=== PATIENT | female | born 1955 | race Caucasian/White ===

== ENCOUNTER 2017-03-13 15:59 | Emergency (ER) | payer OTHER ==
[~2017-03-13] VITALS: Ht 154.9 cm; Wt 86.0 kg
[~2017-03-13 15:59] MED LIST: NO MEDS
[2017-03-13 16:00] VITALS: TEMP 36.5; Ht 154.9 cm; Wt 86.0 kg
[2017-03-13] MEDS ORDERED: MoRPHine SULFATE 4 MG/ML 1 ML CARP\\VIAL IV STA (17:11)
[2017-03-13] MEDS ORDERED: ONDANSETRON INJ 2 MG/ML 2 ML VIAL IV STA ×2 (17:11→18:25)
[2017-03-13 17:41] LABS: BASO % 0.3 %; BASO ABS # 0.03 K/uL (0-0.2); COMPLETE YES; EOS % 2.3 %; HEMATOCRIT 40.3 % (37-47); IG% 0.5 %; LYMPH % 22.4 %; LYMPH ABS # 2.21 K/uL (1.2-3.4); MEAN CELL VOLUME 96.9 fL (80-100); MEAN CORPUSCULAR HEMOGLOBIN 34.1 pg (25-34); MEAN CORPUSCULAR HGB CONC 35.2 g/dl (32-36); MONO % 5.1 %; NEUT % 69.4 %; PLATELET COUNT 247 K/uL (130-400); RED BLOOD COUNT 4.16 M/uL (4.2-5.4); WHITE BLOOD COUNT 9.86 K/uL (4.8-10.8)
--- NOTE | 2017-03-13 17:55 | DIAGNOSTIC IMAGING REPORT ---
CT SCAN OF THE ABDOMEN AND PELVIS WITHOUT IV CONTRAST CLINICAL HISTORY: Right flank pain. COMPARISON STUDY: No priors. TECHNIQUE: CT scan of the abdomen and pelvis is performed from the lung bases to the proximal femora. Images are reviewed in the axial, sagittal, and coronal planes. IV contrast was not administered for this examination as per the referring clinician. Automated dose control exposure was utilized. A dose lowering technique was utilized adhering to the principles of ALARA. CT DOSE: 1552.27 mGy.cm FINDINGS: Lung bases: The heart is normal in size and without pericardial effusion. Calcified mediastinal and hilar lymph nodes are partially imaged. Calcified granulomas are present at both lung bases. Bibasilar atelectasis is noted. No airspace consolidation or pleural effusion is seen. A tiny hiatal hernia is identified. Liver: The unenhanced liver is top normal in size measuring 18 cm in length. The liver demonstrates diffusely diminished attenuation consistent with hepatic steatosis. Fatty sparing is seen adjacent to gallbladder fossa. There is no intrahepatic biliary ductal dilatation. Gallbladder: Unremarkable. Spleen: Normal in size and attenuation. Pancreas: The unenhanced pancreas is mildly atrophic and grossly unremarkable. Adrenal glands: A 3 cm left adrenal nodule and a 2.0 cm right adrenal nodule meet CT criteria for fat-containing adenomas. Kidneys: The unenhanced kidneys are normal in size. There is a 6 mm obstructing calculus at the right vesicoureteral junction seen on axial image #357. This causes mild right-sided hydroureteronephrosis. There is mild associated perinephric and periureteric stranding. No additional calculi are identified in either kidney. There is no left-sided hydronephrosis. There is no evidence of contour deforming renal mass lesion. Abdominal vasculature: The abdominal aorta is normal in course and caliber. Bowel: No bowel obstruction is seen. There is mild to moderate colonic diverticulosis without CT evidence of acute diverticulitis. The appendix is well-visualized and normal. Peritoneum: There is no intraperitoneal free air or abdominal ascites. There is a small fat-containing umbilical hernia. Lymphadenopathy: None. Pelvic viscera: The bladder is decompressed and grossly unremarkable. The uterus and adnexa are normal as visualized. Skeletal structures: The skeletal structures are osteopenic. There is mild to moderate lumbosacral spondylosis. Large disc osteophyte complexes at L3-L4, L4-L5, and L5-S1 may contribute to acquired compromise of the central canal. No lytic or blastic lesions are seen. IMPRESSION: 1. There is a 6 mm obstructing calculus at the right vesicoureteral junction. This causes mild right-sided hydroureteronephrosis. 2. No additional calculi are identified in either kidney. 3. Hepatomegaly and mild hepatic steatosis. 4. Mild to moderate colonic diverticulosis without CT evidence of acute diverticulitis. 5. Additional findings as above. Electronically signed by: Preston Diaz M.D. 03/13/2017 5:54 PM Dictated Date/Time: 03/13/2017 5:47 PM
[2017-03-13 17:59] LABS: BUN/CREATININE RATIO 14.3 (10-20); CALCIUM 9.3 mg/dl (8.5-10.1); CREATININE 0.93 mg/dl (0.60-1.20); POTASSIUM 3.9 mmol/L (3.5-5.1)
[2017-03-13] MEDS ORDERED: THYROID PILL PO (18:01)
[2017-03-13] MEDS ORDERED: REPA1TAB42 PO (18:01)
[2017-03-13] MEDS ORDERED: LISI-729 PO (18:01)
[2017-03-13] MEDS ORDERED: ATOR10TA88 PO (18:01)
[2017-03-13] MEDS ORDERED: GLC/500 PO (18:01)
[2017-03-13] MEDS ORDERED: ARTHRITIS PILL PO (18:01)
[2017-03-13] MEDS ORDERED: SODIUM CHLORIDE 0.9% 1000ML 1,000 ML IV STA (18:04)
[2017-03-13] MEDS ORDERED: HYDROmorphone INJ 1 MG/ML SYR IV STA (18:04)
[2017-03-13] MEDS ORDERED: KETOROLAC TROMETHAMINE 30 MG/ML VIAL IV STA (18:04)
[2017-03-13 18:08] LABS: MANUAL MICROSCOPIC REQUIRED? YES; URINE APPEARANCE SL CLOUDY (CLEAR); URINE BILIRUBIN NEG (NEG); URINE COLOR YELLOW; URINE NITRITE NEG (NEG); URINE SPECIFIC GRAVITY >= 1.030 (1.000-1.030); UROBILINOGEN NEG (NEG)
[2017-03-13 18:09] LABS: REVIEW REQ? NO
[2017-03-13 18:10] LABS: URINE BACTERIA 1+ (NEG); URINE MUCUS PRESENT (NONE PRSENT)
[2017-03-13] MEDS ORDERED: OXYC1TAB3 PO (19:53)
[2017-03-13] MEDS ORDERED: ONDANSETRON HOME PACK 4MG OD TAB PO ONE (20:00)
[2017-03-13] MEDS ORDERED: OXYCODONE IR HOME PACK PO ONE (20:00)
[2017-03-13 20:11] VITALS: BP 108/70; PULSE 74; O2SAT 98
--- NOTE | 2017-03-13 20:28 | EMERGENCY ROOM VISIT NOTE ---
History Report prepared by Javy: Albino Waddell Under the Supervision of: Dr. Khoa Hanson M.D. First contact with patient: 17:07 Chief Complaint: FLANK PAIN Stated Complaint: PAIN IN R SIDE, THROWING UP History of Present Illness The patient is a 62 year old female who presents to the Emergency Room with complaints of persistent right flank pain that started earlier this afternoon. She says that she woke up this morning and felt "funny'. She states that she had a bowel movement this afternoon, and that is when the pain kicked in. The patient describes the pain as sharp. Per the patient's , the patient broke out in cold sweats earlier. The patient adds that she has been nauseous with episodes of vomiting. She denies any urinary symptoms, melena, or hematochezia. The patient has a history of 3 c-sections. She still has her gallbladder. The patient notes no history of kidney stones or hypertension. Source of History: patient, spouse/significant other Onset: Earlier this afternoon Position: other (right flank) Quality: sharp Timing: other (persistent) Associated Symptoms: + nausea, + vomiting, No melena, No hematochezia, No urinary symptoms Note: Associated symptoms: [place] "funny" upon waking. Broke out in cold sweats earlier. Review of Systems See HPI for pertinent positives & negatives. A total of 10 systems reviewed and were otherwise negative. Past Medical & Surgical Medical Problems: (1) Carpal tunnel syndrome (2) No chronic diseases present Surgical Problems: (1) Hx of section Family History Cancer Diabetes mellitus FHx: gallbladder disease Kidney disease Social History Smoking Status: Current Every Day Smoker Alcohol Use: none Marital Status: Housing Status: lives with family Occupation Status: employed Current/Historical Medications Scheduled Atorvastatin (Lipitor), 10 MG PO DAILY Lisinopril (Zestril), 1 TAB PO DAILY Metformin Hcl (Glucophage), 1 TAB PO BID Repaglinide (Prandin), 1 TAB PO UD [Arthritis Pill], 1 TAB PO PRN UD [Thyroid Pill], 1 TAB PO DAILY Scheduled PRN Oxycodone Ir (Roxicodone Ir), 5 MG PO Q4H PRN for Pain Allergies Coded Allergies: No Known Allergies (Verified Allergy, Unknown, 06/28/08) Physical Exam Vital Signs Date Time Temp Pulse Resp B/P (MAP) Pulse Ox O2 Delivery O2 Flow Rate FiO2 03/13/17 20:11 74 20 108/70 98 03/13/17 18:48 86 20 102/54 99 Room Air 03/13/17 18:00 76 16 115/68 95 Room Air 03/13/17 17:30 79 16 129/78 97 Room Air 03/13/17 16:00 36.5 83 17 151/81 96 Room Air Physical Exam Constitutional: Vital signs reviewed. Eyes: Pupils are equal round reactive to light. Conjunctiva are noninjected. ENT: Pharynx is clear without erythema or exudate. Mucous membranes are moist. Neck supple without meningeal signs. Respiratory: Clear to auscultation bilaterally. Breath sounds are equal bilaterally. Cardiovascular: Regular rate and rhythm. No rubs or gallops. GI: Soft, nondistended. Right upper quadrant tenderness, no Sauer's sign or guarding. Bowel sounds are present. Musculoskeletal: No peripheral edema. No CVA tenderness. Integumentary: No cyanosis. Neurological: The patient is awake and alert. No focal deficits. Psychiatric: Normal affect. Medical Decision & Procedures ER Provider Diagnostic Interpretation: CT results as stated below per my review and radiologist interpretation. CT SCAN OF THE ABDOMEN AND PELVIS WITHOUT IV CONTRAST CLINICAL HISTORY: Right flank pain. COMPARISON STUDY: No priors. TECHNIQUE: CT scan of the abdomen and pelvis is performed from the lung bases to the proximal femora. Images are reviewed in the axial, sagittal, and coronal planes. IV contrast was not administered for this examination as per the referring clinician. Automated dose control exposure was utilized. A dose lowering technique was utilized adhering to the principles of ALARA. CT DOSE: 1552.27 mGy.cm FINDINGS: Lung bases: The heart is normal in size and without pericardial effusion. Calcified mediastinal and hilar lymph nodes are partially imaged. Calcified granulomas are present at both lung bases. Bibasilar atelectasis is noted. No airspace consolidation or pleural effusion is seen. A tiny hiatal hernia is identified. Liver: The unenhanced liver is top normal in size measuring 18 cm in length. The liver demonstrates diffusely diminished attenuation consistent with hepatic steatosis. Fatty sparing is seen adjacent to gallbladder fossa. There is no intrahepatic biliary ductal dilatation. Gallbladder: Unremarkable. Spleen: Normal in size and attenuation. Pancreas: The unenhanced pancreas is mildly atrophic and grossly unremarkable. Adrenal glands: A 3 cm left adrenal nodule and a 2.0 cm right adrenal nodule meet CT criteria for fat-containing adenomas. Kidneys: The unenhanced kidneys are normal in size. There is a 6 mm obstructing calculus at the right vesicoureteral junction seen on axial image #357. This causes mild right-sided hydroureteronephrosis. There is mild associated perinephric and periureteric stranding. No additional calculi are identified in either kidney. There is no left-sided hydronephrosis. There is no evidence of contour deforming renal mass lesion. Abdominal vasculature: The abdominal aorta is normal in course and caliber. Bowel: No bowel obstruction is seen. There is mild to moderate colonic diverticulosis without CT evidence of acute diverticulitis. The appendix is well-visualized and normal. Peritoneum: There is no intraperitoneal free air or abdominal ascites. There is a small fat-containing umbilical hernia. Lymphadenopathy: None. Pelvic viscera: The bladder is decompressed and grossly unremarkable. The uterus and adnexa are normal as visualized. Skeletal structures: The skeletal structures are osteopenic. There is mild to moderate lumbosacral spondylosis. Large disc osteophyte complexes at L3-L4, L4-L5, and L5-S1 may contribute to acquired compromise of the central canal. No lytic or blastic lesions are seen. IMPRESSION: 1. There is a 6 mm obstructing calculus at the right vesicoureteral junction. This causes mild right-sided hydroureteronephrosis. 2. No additional calculi are identified in either kidney. 3. Hepatomegaly and mild hepatic steatosis. 4. Mild to moderate colonic diverticulosis without CT evidence of acute diverticulitis. 5. Additional findings as above. Electronically signed by: Preston Diaz M.D. 03/13/2017 5:54 PM Dictated Date/Time: 03/13/2017 5:47 PM Laboratory Results 03/13/17 17:30 Red Blood Count 4.16, Mean Corpuscular Volume 96.9, Mean Corpuscular Hemoglobin 34.1, Mean Corpuscular Hemoglobin Concent 35.2, Mean Platelet Volume 10.0, Neutrophils (%) (Auto) 69.4, Lymphocytes (%) (Auto) 22.4, Monocytes (%) (Auto) 5.1, Eosinophils (%) (Auto) 2.3, Basophils (%) (Auto) 0.3, Neutrophils # (Auto) 6.84, Lymphocytes # (Auto) 2.21, Monocytes # (Auto) 0.50, Eosinophils # (Auto) 0.23, Basophils # (Auto) 0.03 03/13/17 17:30 Test 03/13/17 17:30 White Blood Count 9.86 K/uL (4.8-10.8) Red Blood Count 4.16 M/uL (4.2-5.4) Hemoglobin 14.2 g/dL (12.0-16.0) Hematocrit 40.3 % (37-47) Mean Corpuscular Volume 96.9 fL (80-100) Mean Corpuscular Hemoglobin 34.1 pg (25-34) Mean Corpuscular Hemoglobin Concent 35.2 g/dl (32-36) Platelet Count 247 K/uL (130-400) Mean Platelet Volume 10.0 fL (7.4-10.4) Neutrophils (%) (Auto) 69.4 % Lymphocytes (%) (Auto) 22.4 % Monocytes (%) (Auto) 5.1 % Eosinophils (%) (Auto) 2.3 % Basophils (%) (Auto) 0.3 % Neutrophils # (Auto) 6.84 K/uL (1.4-6.5) Lymphocytes # (Auto) 2.21 K/uL (1.2-3.4) Monocytes # (Auto) 0.50 K/uL (0.11-0.59) Eosinophils # (Auto) 0.23 K/uL (0-0.5) Basophils # (Auto) 0.03 K/uL (0-0.2) RDW Standard Deviation 42.6 fL (36.4-46.3) RDW Coefficient of Variation 12.0 % (11.5-14.5) Immature Granulocyte % (Auto) 0.5 % Immature Granulocyte # (Auto) 0.05 K/uL (0.00-0.02) Urine Color YELLOW Urine Appearance SL CLOUDY (CLEAR) Urine pH 5.0 (4.5-7.5) Urine Specific [place] >= 1.030 (1.000-1.030) Urine Protein 1+ (NEG) Urine Glucose (UA) 3+ (NEG) Urine Ketones TRACE (NEG) Urine Occult Blood 3+ (NEG) Urine Nitrite NEG (NEG) Urine Bilirubin NEG (NEG) Urine Urobilinogen NEG (NEG) Urine Leukocyte Esterase NEG (NEG) Urine RBC 10-30 /hpf (0-4) Urine WBC 1-5 /hpf (0-5) Urine Epithelial Cells 5-10 /lpf (0-5) Urine Calcium Oxalate Crystals PRESENT (NONE PRSENT) Urine Bacteria 1+ (NEG) Urine Mucus PRESENT (NONE PRSENT) Anion Gap 10.0 mmol/L (3-11) Est Creatinine Clear Calc Drug Dose 61.6 ml/min Estimated GFR () 75.8 Estimated GFR (Non- 65.4 BUN/Creatinine Ratio 14.3 (10-20) Calcium Level 9.3 mg/dl (8.5-10.1) Total Bilirubin 0.3 mg/dl (0.2-1) Direct Bilirubin 0.1 mg/dl (0-0.2) Aspartate Amino Transf (AST/SGOT) 15 U/L (15-37) Alanine Aminotransferase (ALT/SGPT) 29 U/L (12-78) Alkaline Phosphatase 123 U/L (45-117) Total Protein 7.5 gm/dl (6.4-8.2) Albumin 3.8 gm/dl (3.4-5.0) Lipase 242 U/L (73-393) Laboratory results as reviewed by me. Medications Administered Medications (Trade) Dose Ordered Sig/Natalia Route Start Time Stop Time Status Last Admin Dose Admin Morphine Sulfate (MoRPHine SULFATE INJ) 4 mg ONE STAT IV 03/13/17 17:11 03/13/17 17:13 DC 03/13/17 17:28 4 MG Ondansetron HCl (Zofran Inj) 4 mg NOW STAT IV 03/13/17 17:11 03/13/17 17:13 DC 03/13/17 17:27 4 MG Ketorolac Tromethamine (Toradol Inj) 10 mg NOW STAT IV 03/13/17 18:04 03/13/17 18:06 DC 03/13/17 18:26 10 MG Hydromorphone HCl (Dilaudid Inj) 0.5 mg NOW STAT IV 03/13/17 18:04 03/13/17 18:06 DC 03/13/17 18:23 0.5 MG Sodium Chloride 1,000 ml @ 999 mls/hr Q1H1M STAT IV 03/13/17 18:04 03/13/17 19:04 DC 03/13/17 18:26 999 MLS/HR Ondansetron HCl (Zofran Inj) 4 mg NOW STAT IV 03/13/17 18:25 03/13/17 18:26 DC 03/13/17 18:47 4 MG Oxycodone HCl (Roxicodone Immediate Rel 5MG Home Pack) 1 homepack UD ONCE PO 03/13/17 20:00 03/13/17 20:01 DC 03/13/17 20:10 1 HOMEPACK Ondansetron HCl (ZOFRAN ODT 4MG Home Pack) 1 homepack UD ONCE PO 03/13/17 20:00 03/13/17 20:01 DC 03/13/17 20:10 1 HOMEPACK ED Course 1708: The patient was evaluated in room A4B. A complete history and physical exam was performed. 171: Ordered Zofran Inj 4 mg IV, Morphine Sulfate Inj 4 mg IV. 180: I reevaluated the patient and she is still having a lot of pain. 180: Ordered Toradol Inj 10 mg IV. 1821: I reevaluated the patient and she is still dry heaving and in significant pain. I discussed the test results with her. 1905: I reevaluated the patient and she feels a lot better. 1948: I reevaluated the patient and she says that she does not have much pain at all and is ready to go home. The patient verbally expressed understanding and agreement of the treatment plan. The patient will be discharged. 1999: Ordered Zofran ODT 4MG Home Pack 1 homepack PO, Roxicodone Immediate Rel 5MG Home Pack 1 homepack PO. Medical Decision This is an 62-year-old female who presents with right flank pain. Differential diagnosis includes kidney stone, hydronephrosis, UTI, pyelonephritis, strain, cholelithiasis, pancreatitis. I did perform a limited focused review of portions of the patient's old chart on the electronic medical record. The patient has had no recent pertinent visits to this hospital. I did evaluate the patient as noted above. IV access was established. I did treat the patient with IV morphine and Zofran. She had continued pain and was given Toradol 10 mg IV and Dilaudid 0.5 mg IV. She was also given normal saline IV. I did order and personally review the patient's urinalysis as described above. There is some evidence of bacteria but no leukocyte esterase or nitrates or abnormal WBCs. She denies any urinary symptoms. A urine culture was sent. I did order and review the patient's blood work as noted in the electronic medical record. I did order a CT of the abdomen and pelvis. I did review the images myself as well as the radiology report as described above.She does have a 6 mm UVJ stone. On reevaluation patient is feeling much better. I did reassess her and she continued to feel well and ready for discharge. She was given a home pack for Zofran and oxycodone. She is also given a short prescription for oxycodone. She was given precautions regarding this medication and return instructions as outlined below. [place] Drug Monitoring Program Search Results: patient reviewed within database Drug Monitoring Findings: No matching patient. Medication Reconcilliation Current Medication List: was personally reviewed by me No medications on list. Blood Pressure Screening Patient's blood pressure: Elevated blood pressure Blood pressure disposition: Referred to PCP Impression Primary Impression: Renal colic Scribe Attestation The scribe's documentation has been prepared under my direct and personally reviewed by me in its entirety. I confirm that the note above accurately reflects all work, treatment, procedures, and medical decision making performed by me. Departure Information Dispostion Home / Self-Care Prescriptions Oxycodone Ir (Roxicodone Ir) 5 Mg Tab 5 MG PO Q4H Y for Pain, #14 TAB Prov: Khoa Hanson M.D. 03/13/17 Referrals Deanna Kelsey (PCP) Forms HOME CARE DOCUMENTATION FORM, IMPORTANT VISIT INFORMATION Patient Instructions Kidney Stones Expectant Therapy, My [facility] Additional Instructions You have been examined and treated today on an emergency basis only. This is not a substitute for, or an effort to provide, complete comprehensive medical care. It is impossible to recognize and treat all injuries or illnesses in a single emergency department visit. It is therefore important that you follow up closely with your physician. Call as soon as possible for an appointment. Return for worsening symptoms or if you develop fever or any other concerning symptoms.
== END 2017-03-13 20:13 | disposition home or self-care (01) ==
LOC: C.EDB 16:00 → C.EDA 20:13
DX: N23 Unspecified renal colic (principal); N20.1 Calculus of ureter; F17.200 Nicotine dependence, unspecified, uncomplicated; G56.00 Carpal tunnel syndrome, unspecified upper limb; Z79.84 Long term (current) use of oral hypoglycemic drugs

== ENCOUNTER 2017-04-22 06:39 | Observation (INO) | payer OTHER ==
[~2017-04-22] VITALS: Ht 154.9 cm; Wt 86.6 kg
[~2017-04-22 06:39] MED LIST changes: +ARTHRITIS PILL PO; +ATOR10TA88 PO; +GLC/500 PO; +LISI-729 PO; -NO MEDS; +OXYC1TAB3 PO; +REPA1TAB42 PO; +THYROID PILL PO
[2017-04-22] MEDS ORDERED: NITROGLYCERIN 0.3 MG/1 TAB 100 TAB BTL SL PRN ×2 (07:00→08:45)
--- NOTE | 2017-04-22 07:00 | EMERGENCY ROOM VISIT NOTE ---
History Report prepared by Javy: Vicky Montero Under the Supervision of: Dr. Fernando Tellez M.D. First contact with patient: 06:50 Chief Complaint: CHEST PAIN Stated Complaint: CHEST DISCOMFORT Nursing Triage Summary: Pt states midsternal cp since 0230. Pain is non radiating. Denies sob, dizziness, lightheadedness. Denies cardiac hx. Pt states took Tradmadol at 0200 for left knee pain. History of Present Illness The patient is a 62 year old female who presents to the Emergency Room with complaints of persistent chest pain that began around 0230 this morning. She currently rates her discomfort as a 2/10 in severity. The patient states that she woke this morning around 0230 and reports difficulty breathing. She describes her discomfort as a tightness. The patient denies ever having pain like this in the past. She denies the pain radiating into any other part of the body. The patient reports a history of diabetes and high cholesterol. She denies any cardiac history. The patient states that she had a stress test done twenty years ago. She denies any lightheadedness or nausea. Source of History: patient Onset: 0230 this morning Position: chest Symptom Intensity: 2/10 Quality: other (tightness) Timing: other (persistent) Associated Symptoms: No nausea Review of Systems All systems have been listed, reviewed, and are negative other than those previously mentioned. Please see Additional Medical History Sheet. Past Medical & Surgical Medical Problems: (1) Carpal tunnel syndrome (2) Chest pain (3) Diabetes (4) High cholesterol (5) Kidney stone (6) No chronic diseases present Surgical Problems: (1) Hx of section Family History Cancer Diabetes mellitus FHx: gallbladder disease Kidney disease Social History Smoking Status: Current Every Day Smoker Smokeless Tobacco Use: No Alcohol Use: none Marital Status: Housing Status: lives with family Occupation Status: retired Current/Historical Medications Scheduled Aspirin (Aspirin Ec), 81 MG PO DAILY Atorvastatin (Lipitor), 20 MG PO DAILY Diclofenac (Voltaren), 75 MG PO BID Lisinopril (Lisinopril), 2.5 MG PO QAM Metformin HCl (Metformin HCl), 500 MG PO QAM Metformin Hcl (Glucophage), 750 MG PO QPM Methimazole (Methimazole), 20 MG PO 3XWK Methimazole (Methimazole), 25 MG PO 4XWK Repaglinide (Repaglinide), 2 MG PO QAM Allergies Coded Allergies: No Known Allergies (Verified , 04/22/17) Physical Exam Vital Signs Date Time Temp Pulse Resp B/P (MAP) Pulse Ox O2 Delivery O2 Flow Rate FiO2 04/22/17 08:30 94 Room Air 04/22/17 08:30 65 18 95/53 95 Room Air 04/22/17 08:00 75 18 91/55 95 Room Air 04/22/17 07:37 93/58 04/22/17 07:32 88/55 04/22/17 07:23 81 18 104/63 94 Room Air 04/22/17 07:00 83 18 103/58 95 Room Air 04/22/17 06:54 83 04/22/17 06:50 93 Room Air 04/22/17 06:41 36.6 91 20 132/74 96 Room Air Physical Exam GENERAL: Patient awake, alert, oriented x 3. Patient follows commands. Patient does not appear toxic. Patient is adequately hydrated and well- nourished. SKIN: No erythema, pallor, cyanosis or rash HEENT: Normal head, pupils equal, reactive to light and accommodation. Ears normal. Oral cavity and posterior pharynx appear normal. Neck: Without adenopathy, no neck vein distention. LUNGS: Clear to auscultation. No wheezes, no rales, no rhonchi. HEART: No murmurs. No gallops. No rubs ABDOMEN: Obese. No masses, no rebound, no hepatomegaly or splenomegaly. EXTREMITIES: No signs of trauma or infection. No significant pedal or pretibial edema. NEUROLOGIC: Cranial nerves II-XII within normal limits. No gross motor sensory function deficits. Medical Decision & Procedures ER Provider Diagnostic Interpretation: X ray results are stated below per my interpretation and the radiologist's interpretation. CHEST ONE VIEW PORTABLE CLINICAL HISTORY: Atypical chest pain COMPARISON STUDY: No previous studies for comparison. FINDINGS: The cardiac and mediastinal contours are normal. There is no evidence of focal pulmonary consolidation. There is no evidence of failure. No pleural effusions are visualized.[ Bilateral linear opacities are felt to represent subsegmental atelectasis. IMPRESSION: No active disease in the chest. Electronically signed by: Atilio Reyes M.D. 04/22/2017 7:44 AM Dictated Date/Time: 04/22/2017 7:43 AM Laboratory Results 04/22/17 06:53 04/22/17 06:53 Test 04/22/17 06:53 04/22/17 08:26 Red Blood Count 3.77 M/uL (4.2-5.4) Mean Corpuscular Volume 96.6 fL (80-100) Mean Corpuscular Hemoglobin 33.7 pg (25-34) Mean Corpuscular Hemoglobin Concent 34.9 g/dl (32-36) RDW Standard Deviation 43.7 fL (36.4-46.3) RDW Coefficient of Variation 12.4 % (11.5-14.5) Mean Platelet Volume 9.7 fL (7.4-10.4) Anion Gap 10.0 mmol/L (3-11) Est Creatinine Clear Calc Drug Dose 71.0 ml/min Estimated GFR () 89.6 Estimated GFR (Non- 77.3 BUN/Creatinine Ratio 21.6 (10-20) Estimated Average Glucose 189 mg/dl Hemoglobin A1c 8.2 % (4.5-5.6) Calcium Level 8.8 mg/dl (8.5-10.1) Thyroid Stimulating Hormone (TSH) 8.200 uIu/ml (0.300-4.500) Free Thyroxine 1.03 ng/dl (0.80-1.60) Hepatitis C Antibody Screen NEG (NEG) Bedside Troponin I < 0.030 ng/ml (0-0.045) Laboratory results as stated above per my review. Medications Administered Medications (Trade) Dose Ordered Sig/Natalia Route Start Time Stop Time Status Last Admin Dose Admin Nitroglycerin (Nitrostat Tab) 0.4 mg Q5M PRN SL 04/22/17 07:30 04/22/17 09:24 DC 04/22/17 07:22 0.4 MG Sodium Chloride 0 ml @ 999 mls/hr Q0M ONCE IV 04/22/17 07:45 04/22/17 07:46 DC 04/22/17 07:46 999 MLS/HR Sodium Chloride 300 ml @ 100 mls/hr Q3H IV 04/22/17 08:00 04/22/17 09:24 DC 04/22/17 07:46 100 MLS/HR Aspirin (Aspirin Chew) 240 mg NOW STAT PO 04/22/17 07:55 04/22/17 07:57 DC 04/22/17 08:06 243 MG Sodium Chloride 1,000 ml @ 50 mls/hr Q20H ONCE IV 04/22/17 08:30 04/23/17 04:29 04/22/17 08:30 50 MLS/HR ECG Indication: chest pain Rate (beats per minute): 86 Rhythm: normal sinus Findings: LAFB, RBBB, no acute ischemic change, no ectopy ED Course 0651: Past medical records reviewed. The patient was evaluated in room A3. A complete history and physical examination was performed. 0721: Ordered Nitroglycerin Tab 0.4 mg .route. 0745: I discussed the patients case with Kavin Bai. He is going to evaluate the patient for further treatment. Ordered Sodium Chloride 0 ml @ 999 mls/hr IV. 0747: I reevaluated the patient and she is resting comfortably. I discussed the exam findings with her and I discussed the treatment plan. She verbalized complete understanding and agreement. She is going to be evaluated for further treatment. 0755: Ordered Aspirin 240 mg PO. 0800: Ordered Sodium Chloride 300 ml @ 100 mls/hr IV. Medical Decision I considered multiple diagnoses including myocardial infarction, chest wall pain , pericarditis, myocarditis, aortic emergencies, pulmonary embolism, congestive heart failure, GI causes, and other significant cardiopulmonary disorders. The patient has a significant past cardiac history. She is also on blood pressure medications and medication to reduce cholesterol. EKG and troponin were felt to be within normal range. The patient does have a bundle branch block. The patient did get some relief with nitroglycerin but it also dropped her blood pressure. She was given a fluid bolus which returned her blood pressure normal level. Patient will require further evaluation in the hospital. I discussed care with the patient, her and the hospitalist. Medication Reconcilliation Current Medication List: was personally reviewed by me Blood Pressure Screening Patient's blood pressure: Normal blood pressure Blood pressure disposition: Did not require urgent referral Consults Time Called: 0743 Consulting Physician: Kavin Bai Returned Call: 0745 I discussed the patients case with Kavin Bai. He is going to evaluate the patient for further treatment. Impression Primary Impression: Acute coronary syndrome Scribe Attestation The scribe's documentation has been prepared under my direction and personally reviewed by me in its entirety. I confirm that the note above accurately reflects all work, treatment, procedures, and medical decision making performed by me. Departure Information Dispostion Being Evaluated By Hospitalist Polo Granda M.D. (PCP)
[2017-04-22 07:08] LABS: HEMATOCRIT 36.4 % (37-47); MEAN CELL VOLUME 96.6 fL (80-100); MEAN CORPUSCULAR HEMOGLOBIN 33.7 pg (25-34); MEAN CORPUSCULAR HGB CONC 34.9 g/dl (32-36); MEAN PLATELET VOLUME 9.7 fL (7.4-10.4); PLATELET COUNT 246 K/uL (130-400); RED BLOOD COUNT 3.77 M/uL (4.2-5.4); WHITE BLOOD COUNT 8.55 K/uL (4.8-10.8)
[2017-04-22] MEDS ORDERED: ASPI81TA28 PO (07:08)
[2017-04-22] MEDS ORDERED: REPA1TAB10 PO (07:08)
[2017-04-22] MEDS ORDERED: LSN25 PO (07:08)
[2017-04-22] MEDS ORDERED: METH10TA6 PO ×2 (07:08)
[2017-04-22] MEDS ORDERED: DICL-201 PO (07:08)
[2017-04-22] MEDS ORDERED: ATOR-54 PO (07:08)
[2017-04-22] MEDS ORDERED: GLC500 PO (07:08)
[2017-04-22] MEDS ORDERED: GLC/500 PO (07:08)
[2017-04-22] MEDS ORDERED: NITROGLYCERIN 0.4 MG SL PER TAB CHARGE ONE (07:21)
[2017-04-22 07:25] LABS: BUN/CREATININE RATIO 21.6 (10-20); CALCIUM 8.8 mg/dl (8.5-10.1); CREATININE 0.81 mg/dl (0.60-1.20); POTASSIUM 3.4 mmol/L (3.5-5.1)
[2017-04-22] MEDS ORDERED: NITROGLYCERIN 0.4 MG SL PER TAB CHARGE SL PRN (07:30)
[2017-04-22] MEDS ORDERED: SODIUM CHLORIDE 0.9% 1000ML 1,000 ML IV ONE ×2 (07:45→08:30)
--- NOTE | 2017-04-22 07:45 | DIAGNOSTIC IMAGING REPORT ---
CHEST ONE VIEW PORTABLE CLINICAL HISTORY: Atypical chest pain COMPARISON STUDY: No previous studies for comparison. FINDINGS: The cardiac and mediastinal contours are normal. There is no evidence of focal pulmonary consolidation. There is no evidence of failure. No pleural effusions are visualized.[ Bilateral linear opacities are felt to represent subsegmental atelectasis. IMPRESSION: No active disease in the chest. Electronically signed by: Atilio Reyes M.D. 04/22/2017 7:44 AM Dictated Date/Time: 04/22/2017 7:43 AM
[2017-04-22] MEDS ORDERED: ASPIRIN 81 MG CHEW PO STA (07:55)
[2017-04-22] MEDS ORDERED: SODIUM CHLORIDE 0.9% 1000ML 1,000 ML IV SCH (08:00)
[2017-04-22 08:30] VITALS: O2SAT 94; BMI 36.1
[2017-04-22] MEDS ORDERED: ACETAMINOPHEN 325 MG TAB PO PRN (08:30)
[2017-04-22] MEDS ORDERED: GLUCOSE 40% GEL 15 GM TUBE PO PRN (08:45)
[2017-04-22] MEDS ORDERED: DEXTROSE 50% 50 ML SYR IV PRN (08:45)
[2017-04-22] MEDS ORDERED: GLUCAGON FOR INJ 1 MG VIAL SQ PRN (08:45)
[2017-04-22] MEDS ORDERED: GLUCOSE 10 TABS/TUBE PO PRN (08:45)
[2017-04-22] MEDS ORDERED: ASPIRIN 81 MG ECTAB PO SCH (09:00)
[2017-04-22] MEDS ORDERED: INSULIN GLARGINE SOLOSTAR 100 UNITS/ML 3 ML PEN SC SCH (09:00)
[2017-04-22] MEDS ORDERED: ATORVASTATIN 20 MG TAB PO SCH (09:00)
[2017-04-22] MEDS ORDERED: DICLOFENAC SOD EC 75 MG TABCR PO SCH (09:00)
[2017-04-22] MEDS ORDERED: LISINOPRIL 2.5 MG TAB PO SCH (09:00)
--- NOTE | 2017-04-22 09:01 | History and Physical ---
History & Physical Date & Time of Service: Apr 22, 2017 at 08:45 Chief Complaint: Chest Discomfort Primary Care Physician: Polo Contreras M.D. History of Present Illness Source: patient Patient is a 62 Yr female with PMH of DM II, HTN, HLP, Hyperthyroidism, Tobacco use disorder, RBBB, LAFB and other problems presents with history of retrosternal chest pain which started around 2am this morning which woke her up from sleep. She describes the pain as discomfort, dull, aching, 2/10 intensity, non radiating associated with a very brief period of dyspnea. Denies any aggravating/relieving factors, nausea, vomiting, dizziness, diaphoresis, cough, trauma or recent infection, orthopnea, PND, Leg swelling. Denies any similar pain previously. She took Aspirin at home and also was given in ED. Currently ongoing smoking history. Denies any abdominal pain, change in bowel/bladder habits, fever, chills. Past Medical/Surgical History Medical Problems: (1) Carpal tunnel syndrome Status: Resolved (2) Diabetes Status: Chronic (3) High cholesterol Status: Chronic (4) Kidney stone Status: Resolved Surgical Problems: (1) Hx of section Status: Resolved Family History Cancer Diabetes mellitus FHx: gallbladder disease Kidney disease Brother: CAD S/P CABG in his 60s Father:lung cancer Mother:Breast Cancer Social History Smoking Status: Current Every Day Smoker Smokeless Tobacco Use: No Alcohol Use: none Marital Status: Occupational Status: retired Multi-Drug Resistant Organisms History of MDRO: No Allergies Coded Allergies: No Known Allergies (Verified , 04/22/17) Home Medications Scheduled Aspirin (Aspirin Ec), 81 MG PO DAILY Atorvastatin (Lipitor), 20 MG PO DAILY Diclofenac (Voltaren), 75 MG PO BID Lisinopril (Lisinopril), 2.5 MG PO QAM Metformin HCl (Metformin HCl), 500 MG PO QAM Metformin Hcl (Glucophage), 750 MG PO QPM Methimazole (Methimazole), 20 MG PO 3XWK Methimazole (Methimazole), 25 MG PO 4XWK Repaglinide (Repaglinide), 2 MG PO QAM Review of Systems See HPI for pertinent positives & negatives. A total of 10 systems reviewed and were otherwise negative. Physical Exam Vital Signs Date Time Temp Pulse Resp B/P (MAP) Pulse Ox O2 Delivery O2 Flow Rate FiO2 04/22/17 08:30 94 Room Air 04/22/17 08:30 65 18 95/53 95 Room Air 04/22/17 08:00 75 18 91/55 95 Room Air 04/22/17 07:37 93/58 04/22/17 07:32 88/55 04/22/17 07:23 81 18 104/63 94 Room Air 04/22/17 07:00 83 18 103/58 95 Room Air 04/22/17 06:54 83 04/22/17 06:50 93 Room Air 04/22/17 06:41 36.6 91 20 132/74 96 Room Air General Appearance: WD/WN, no apparent distress Head: normocephalic, atraumatic Eyes: normal inspection, PERRL, EOMI, sclerae normal ENT: normal ENT inspection, hearing grossly normal Neck: supple, trachea midline Respiratory/Chest: chest non-tender, lungs clear, normal breath sounds, no respiratory distress, no accessory muscle use Cardiovascular: regular rate, rhythm, no edema, no murmur Abdomen/GI: normal bowel sounds, non tender, soft Back: normal inspection Extremities/Musculoskelatal: normal inspection, no pedal edema Neurologic/Psych: beach lifeguard II-XII nml as tested, no motor/sensory deficits, alert, normal mood/affect, oriented x 3 Skin: normal color, warm/dry Diagnostics Laboratory Results Results Past 24 Hours Test 04/22/17 06:53 04/22/17 07:06 04/22/17 08:26 Range/Units White Blood Count 8.55 4.8-10.8 K/uL Red Blood Count 3.77 4.2-5.4 M/uL Hemoglobin 12.7 12.0-16.0 g/dL Hematocrit 36.4 37-47 % Mean Corpuscular Volume 96.6 80-100 fL Mean Corpuscular Hemoglobin 33.7 25-34 pg Mean Corpuscular Hemoglobin Concent 34.9 32-36 g/dl RDW Standard Deviation 43.7 36.4-46.3 fL RDW Coefficient of Variation 12.4 11.5-14.5 % Platelet Count 246 130-400 K/uL Mean Platelet Volume 9.7 7.4-10.4 fL Sodium Level 140 136-145 mmol/L Potassium Level 3.4 3.5-5.1 mmol/L Chloride Level 107 98-107 mmol/L Carbon Dioxide Level 23 21-32 mmol/L Anion Gap 10.0 3-11 mmol/L Blood Urea Nitrogen 18 7-18 mg/dl Creatinine 0.81 0.60-1.20 mg/dl Est Creatinine Clear Calc Drug Dose 71.0 ml/min Estimated GFR () 89.6 Estimated GFR (Non- 77.3 BUN/Creatinine Ratio 21.6 10-20 Random Glucose 190 70-99 mg/dl Calcium Level 8.8 8.5-10.1 mg/dl Bedside Troponin I < 0.030 < 0.030 0-0.045 ng/ml Diagnostic Radiology CXR:No active disease in the chest. EKG EKG:NSR, LAFB, RBBB, no acute ischemic change Impression Assessment and Plan Chest Pain: R/O ACS Risk factors: H/O DM II, HTN, HLP, Tobacco use disorder, Obesity, Positive family history Initial troponin:Negative EKG shows:NSR, LAFB, RBBB, no acute ischemic change CXR: Unremarkable Check ECHO Trend serial cardiac enzymes, repeat EKG in AM, fasting lipid panel, A1C Continue Aspirin, statins Oxygen PRN Likely needs Stress test NPO for now Cardiology consult DM Type II: Will hold oral diabetic meds Last A1c:7.9 in 05/2016 ISS, lantus, Accu checks Check A1C Hyperthyroidism: Check TSH, Free T4 Continue Methimazole HLP: Continue statins check lipid panel HTN: Stable Continue home meds Tobacco Use disorder: Refuses Nicotine patch H/O RBBB, LAFB DVT Px: Lovenox SQ Code Status: Full Code Disposition: Plan to discharge home when stable Advanced Directives Existing Living Will: Yes Existing Power of Neonatal Social Worker: Yes (FRANCISCO ) VTE Prophylaxis VTE Risk Assessment Done? Y/N: Yes Risk Level: Low
[2017-04-22 09:04] VITALS: O2SAT 95
[2017-04-22] MEDS ORDERED: POTASSIUM CHLORIDE 10 MEQ TABCR PO STA (09:16)
[2017-04-22 09:18] LABS: THYROID STIMULATING HORMONE 8.2 uIu/ml (0.300-4.500)
[2017-04-22 09:56] LABS: ESTIMATED AVERAGE GLUCOSE 189 mg/dl; HA1C FLAG Normal (Normal)
[2017-04-22] MEDS ORDERED: METHIMAZOLE 5 MG TAB PO SCH (10:00)
[2017-04-22 10:08] LABS: PROTHROMBIN TIME (PATIENT) 10.2 SECONDS (9.0-12.0)
[2017-04-22] MEDS ORDERED: PERFLUTREN LIPID MICROSPHERE (DEFINITY) IV ONE ×2 (10:09→11:39)
--- NOTE | 2017-04-22 10:56 | ECHOCARDIOGRAM REPORT ---
*NOTICE TO RECEIVING [employer] This information is strictly Confidential and protected under [place] law. [place] law prohibits you from making any further disclosure of this information unless further disclosure is expressly permitted by the written consent of the person to whom it pertains or is authorized by law. A general authorization for the release of medical or other information is not sufficient for this purpose. Hospital accepts no responsibility if the information is made available to any other person, INCLUDING THE PATIENT. Interpretation Summary * Name: KENA HEATH Study Date: 04/22/2017 09:44 AM BP: 98/59 mmHg * Patient Location: C.2T\S\S238\S\1 HR: 78 * : 1955 (M/d/yyyy) Gender: Female Height: 61 in * Age: 62 yrs Ethnicity: CA Weight: 190 lb * Ordering Physician: Erich Mcwilliams * Referring Physician: Self, Referred * Performed By: Vicky Singh RDCS * * Reason For Study: CHEST PAIN * BSA: 1.8 m2 * -- Conclusions -- * The left ventricle is normal in size. * There is borderline concentric left ventricular hypertrophy. * Septal motion is consistent with conduction abnormality. * Ejection Fraction = 50-55%. * There is no pericardial effusion. * The aortic root is normal size. Procedure Details * A complete two-dimensional transthoracic echocardiogram was performed (2D, M-mode, Doppler and color flow Doppler). * A contrast injection of Definity was performed to improve assessment of LV function. * Contrast was injected into an intravenous site in the left arm. * One vial of Definity ultrasound contrast was diluted in normal saline to a total volume of 10 ml. A total of '2' ml of solution was administered during imaging. * Lot # [id number] of Definity utilized for procedure. * Expiration date MAY 11. * The attending nurse who injected the contrast agent was HORACE JAUREGUI RN. Left Ventricle * The left ventricle is normal in size. * There is borderline concentric left ventricular hypertrophy. * Ejection Fraction = 50-55%. * Left ventricular systolic function is normal. * Septal motion is consistent with conduction abnormality. Right Ventricle * The right ventricle is normal in size and function. Atria * The left atrial size is normal. * Right atrial size is normal. * No ASD detected; PFO is not assessed. Mitral Valve * The mitral valve is normal. * There is no mitral valve stenosis. * There is trace mitral regurgitation. Tricuspid Valve * The tricuspid valve is normal. * There is no tricuspid stenosis. * There is trace tricuspid regurgitation. Aortic Valve * The aortic valve is trileaflet. * No hemodynamically significant valvular aortic stenosis. * No aortic regurgitation is present. Pulmonic Valve * The pulmonic valve is not well visualized. Great Vessels * The aortic root is normal size. Pericardium/Pleural * There is no pericardial effusion. Great Vessels * Normal inferior vena cava diameter and respiratory variation suggests normal central venous pressure. Left Ventricular Diastolic Function * Grade I diastolic dysfunction, (abnormal relaxation pattern). MMode 2D Measurements and Calculations IVSd 0.98 cm IVSs 1.4 cm LVIDd 4.6 cm LVIDs 3.2 cm LVPWd 1.1 cm LVPWs 1.8 cm IVS/LVPW 0.86 FS 31.5 % EDV(Teich) 98.2 ml ESV(Teich) 39.8 ml EF(Teich) 59.4 % EDV(cubed) 98.4 ml ESV(cubed) 31.7 ml EF(cubed) 67.8 % % IVS thick 38.1 % % LVPW thick 54.9 % LV mass(C)d 174.2 grams LV mass(C)dI 94.3 grams/m\S\2 LV mass(C)s 182.0 grams LV mass(C)sI 98.5 grams/m\S\2 SV(Teich) 58.3 ml SI(Teich) 31.6 ml/m\S\2 SV(cubed) 66.8 ml SI(cubed) 36.1 ml/m\S\2 Ao root diam 3.1 cm Ao root area 7.5 cm\S\2 LA dimension 3.3 cm LA/Ao 1.1 LVAd ap4 33.8 cm\S\2 LVLd ap4 8.2 cm EDV(MOD-sp4) 115.3 ml EDV(sp4-el) 118.0 ml LVAs ap4 20.8 cm\S\2 LVLs ap4 7.1 cm ESV(MOD-sp4) 52.2 ml ESV(sp4-el) 51.7 ml EF(MOD-sp4) 54.7 % EF(sp4-el) 56.2 % LVAd ap2 26.9 cm\S\2 LVLd ap2 7.2 cm EDV(MOD-sp2) 80.9 ml EDV(sp2-el) 84.8 ml LVAs ap2 16.8 cm\S\2 LVLs ap2 6.4 cm ESV(MOD-sp2) 37.4 ml ESV(sp2-el) 37.6 ml EF(MOD-sp2) 53.7 % EF(sp2-el) 55.7 % LVLd %diff -14.10 % EDV(MOD-bp) 102.6 ml LVLs %diff -11.57 % ESV(MOD-bp) 46.6 ml EF(MOD-bp) 54.6 % SV(MOD-sp4) 63.1 ml SI(MOD-sp4) 34.1 ml/m\S\2 SV(MOD-sp2) 43.5 ml SI(MOD-sp2) 23.5 ml/m\S\2 SV(MOD-bp) 56.0 ml SI(MOD-bp) 30.3 ml/m\S\2 SV(sp4-el) 66.3 ml SI(sp4-el) 35.9 ml/m\S\2 SV(sp2-el) 47.2 ml SI(sp2-el) 25.6 ml/m\S\2 Doppler Measurements and Calculations MV E max yulia 89.2 cm/sec MV A max yulia 84.9 cm/sec MV E/A 1.1 MV dec time 0.21 sec Ao V2 max 133.8 cm/sec Ao max PG 7.2 mmHg Ao max PG (full) 3.5 mmHg LV V1 max PG 3.6 mmHg LV V1 max 95.1 cm/sec
[2017-04-22] MEDS: INSULIN ASPART 100 UNITS/ML 3 ML PEN SC SCH ×2 (11:00→15:57)
[2017-04-22] MEDS ORDERED: ENOXAPARIN 40 MG/0.4 ML SYR SC SCH (11:00)
[2017-04-22 11:25] VITALS: BP 97/61; PULSE 80; TEMP 36.4; O2SAT 97
[2017-04-22 12:55] VITALS: Ht 154.9 cm; Wt 86.6 kg
[2017-04-22] MEDS ORDERED: IV FLUIDS COMPLETED PRN (13:45)
--- NOTE | 2017-04-22 14:13 | CARDIOLOGY CONSULTATION ---
DATE OF CONSULTATION: 04/22/2017 DATE OF CONSULTATION: 04/22/2017 PRIMARY CARE PHYSICIAN: Dr. Contreras. REFERRING: Dr. Mcwilliams. INDICATIONS: Chest discomfort. 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 The patient presents now noting having awakened approximately 2:00 a.m. with symptoms of low level substernal chest discomfort. Symptoms appeared to awaken from sleep. She noted no waxing or waning, noted no associated dyspnea, diaphoresis, nausea or vomiting. Symptoms were persistent, not specifically exacerbated by activity. She took an aspirin at home as well as one in the ER and symptoms have been gradually subsiding though lasted greater than 6 hours in duration and still with low level grade 1 discomfort per her description. She notes no fevers, chills or productive cough. Notes no melena, hematochezia, dysuria or hematuria. Notes no headache or visual changes. Notes no rash or worsening arthritic complaint. Sedentary about her home but without specific limitations. She does smoke 7-8 cigarettes per day in addition to above. ALLERGIES: None. MEDICATIONS: Prior to hospitalization were aspirin 81 mg per day, atorvastatin 20 mg p.o. daily, diclofenac 75 mg twice per day with food, lisinopril 2.5 grams p.o. daily, metformin 500 mg q.a.m., 750 mg q.p.m., methimazole 20 mg Tuesday, Tuesday, Tuesday, 25 mg Tuesday, , Tuesday and Tuesday, repaglinide 2 mg q.a.m. PAST SURGICAL HISTORY: Notable for prior carpal tunnel release, D&Cs, tubal ligation. FAMILY HISTORY: Notable for coronary disease in brother. SOCIAL HISTORY: The patient resides in [place]. She as noted smokes 7-8 cigarettes per day. Rare alcohol user to none. Uses no significant [id number] medications. PHYSICAL EXAMINATION: VITAL SIGNS: Heart rate 78, blood pressure is 98/59. HEAD, EYES, EARS, NOSE, AND THROAT: Normocephalic, atraumatic. Nares without discharge. Throat was clear. NECK: Supple without thyromegaly, lymphadenopathy, JVD or bruit. LUNGS: Clear to auscultation. CARDIOVASCULAR: Regular, normal S1, S2. There is no murmur, gallop or rub. ABDOMEN: Soft, nontender. EXTREMITIES: Without cyanosis or clubbing. There is no peripheral edema. There are intact distal pulses. There is no brachial femoral delay. NEUROLOGIC: The patient is alert and answering questions appropriately. DATA: EKG reveals sinus rhythm with right bundle branch block, left intrafascicular block, rate of 86. LABORATORY STUDIES: Since admission include two point of care troponins at 0.03 or less, sodium is 140, potassium is 3.4, chloride is 107, bicarb is 23, BUN is 18, creatinine 0.8, hemoglobin A1c is 8.2. White cell count 8.5, hemoglobin is 12.7. Chest x-ray reveals no infiltrate or edema. Echocardiogram today demonstrates mild dyssynergy of the septum, low normal LV systolic function, EF 50-55%. There are no segmental wall motion abnormalities. There is no valvular disease. There is no pericardial effusion. Aortic root was normal in size. IMPRESSION: A 62-year-old female presents with symptoms of low grade mid epigastric and lower substernal chest discomfort grade 2/10 in severity that awakened her from sleep. Symptoms remain nagging and did not wane throughout the night and on ER presentation today. Symptoms have now reduced but not completely absent. Initial enzymes reveal no acute ischemia. EKG is unhelpful given bifascicular block. Discussed findings in detail with the patient. Will recommend proceeding initially with stress echocardiography to assess LV function and clinical response. Would have low threshold to proceeding to diagnostic cardiac catheterization given multiple risk factors including family history of hypertension, diabetes mellitus, hyperlipidemia, and chronic tobacco use. The patient is agreeable to plan.
[2017-04-22 14:54] LABS: CKMB/CK RATIO 1.1 (0-3.0)
--- NOTE | 2017-04-22 16:32 | Progress Note ---
Progress Note Date of Service Apr 22, 2017. Progress Note Patient had Stress ECHO today. Currently chest pain free. Discussed with Cardiology . OK for discharge. Advised to get Nuclear stress test as outpatient. No meds changes for now.
--- NOTE | 2017-04-22 16:36 | Discharge Summary ---
Discharge Summary Date of Service Apr 22, 2017. Discharge Summary Admission Date: Apr 22, 2017 at 08:34 Discharge Date: Apr 22, 2017 Discharge Disposition: Home Principal Diagnosis: Chest Pain Procedures: ECHO : * The left ventricle is normal in size. * There is borderline concentric left ventricular hypertrophy. * Septal motion is consistent with conduction abnormality. * Ejection Fraction = 50-55%. * There is no pericardial effusion. * The aortic root is normal size. Stress ECHO report: pending Consultations: Cardiology Pending Studies/Follow-Up: Follow up with your Primary Care physician on 04/27/17 at 10:25AM Follow up with your Reimbursement Spec for Nuclear stress test in 1-2 weeks as advised Seek immediate medical attention if your symptoms reoccur or worsen Quit smoking as advised Medication Reconciliation Continued Medications: Aspirin (Aspirin Ec) 81 Mg Tab 81 MG PO DAILY Atorvastatin (Lipitor) 20 Mg Tab 20 MG PO DAILY, TAB Diclofenac (Voltaren) 75 Mg Tabcr 75 MG PO BID, TAB WITH FOOD Lisinopril (Lisinopril) 2.5 Mg Tab 2.5 MG PO QAM Metformin HCl (Metformin HCl) 500 Mg Tab 500 MG PO QAM Metformin Hcl (Glucophage) 500 Mg Tab 750 MG PO QPM, TAB Methimazole (Methimazole) 10 Mg Tab 20 MG PO 3XWK TAKES MON, WED, & FRI. Methimazole (Methimazole) 10 Mg Tab 25 MG PO 4XWK TAKES TUES, THURS, SAT, & SUN. Repaglinide (Repaglinide) 2 Mg Tab 2 MG PO QAM Admission Information HPI (per Admitting provider): Patient is a 62 Yr female with PMH of DM II, HTN, HLP, Hyperthyroidism, Tobacco use disorder, RBBB, LAFB and other problems presents with history of retrosternal chest pain which started around 2am this morning which woke her up from sleep. She describes the pain as discomfort, dull, aching, 2/10 intensity, non radiating associated with a very brief period of dyspnea. Denies any aggravating/relieving factors, nausea, vomiting, dizziness, diaphoresis, cough, trauma or recent infection, orthopnea, PND, Leg swelling. Denies any similar pain previously. She took Aspirin at home and also was given in ED. Currently ongoing smoking history. Denies any abdominal pain, change in bowel/bladder habits, fever, chills. Physical Exam (per Admitting): General Appearance: WD/WN, no apparent distress Head: normocephalic, atraumatic Eyes: normal inspection, PERRL, EOMI, sclerae normal ENT: normal ENT inspection, hearing grossly normal Neck: supple, trachea midline Respiratory/Chest: chest non-tender, lungs clear, normal breath sounds, no respiratory distress, no accessory muscle use Cardiovascular: regular rate, rhythm, no edema, no murmur Abdomen/GI: normal bowel sounds, non tender, soft Back: normal inspection Extremities/Musculoskelatal: normal inspection, no pedal edema Neurologic/Psych: [employer] II-XII nml as tested, no motor/sensory deficits, alert , normal mood/affect, oriented x 3 Skin: normal color, warm/dry Hospital Course Chest Pain: R/O ACS Risk factors: H/O DM II, HTN, HLP, Tobacco use disorder, Obesity, Positive family history Initial troponin:Negative EKG shows:NSR, LAFB, RBBB, no acute ischemic change CXR: Unremarkable ECHO: as below cardiac enzymes: negative A1C:8.2 Continue Aspirin, statins Oxygen PRN Stress ECHO: official report pending Appreciate Cardiology Input: No med changes for now Planned for Nuclear stress test as outpatient Discussed about life style changes and quit smoking DM Type II: Will hold oral diabetic meds Last A1c:7.9 in 05/2016 ISS, lantus, Accu checks A1C:8.2 Discussed about life style changes Hyperthyroidism: TSH elevated Free T4: normal Continue Methimazole HLP: Continue statins HTN: Stable Continue home meds Tobacco Use disorder: Refuses Nicotine patch Counselled to quit smoking H/O RBBB, LAFB DVT Px: Lovenox SQ Code Status: Full Code procedures: ECHO : * The left ventricle is normal in size. * There is borderline concentric left ventricular hypertrophy. * Septal motion is consistent with conduction abnormality. * Ejection Fraction = 50-55%. * There is no pericardial effusion. * The aortic root is normal size. Stress ECHO: official report pending Total time spent on discharge = This includes examination of the patient, discharge planning, medication reconciliation, and communication with other providers. Discharge Instructions Discharge Instructions Date of Service Apr 22, 2017. Admission Reason for Admission: Chest Pain Discharge Discharge Diagnosis / Problem: Chest Pain Discharge Goals Goal(s): Decrease discomfort, Improve function Activity Recommendations Activity Limitations: resume your previous activity Exercise/Sports Limitations: gradually increase as tolerated . Instructions / Follow-Up Instructions / Follow-Up Follow up with your Primary Care physician on 04/27/17 at 10:25AM Follow up with your Reimbursement Spec for Nuclear stress test in 1-2 weeks as advised Seek immediate medical attention if your symptoms reoccur or worsen Quit smoking as advised Current Hospital Diet Patient's current hospital diet: AHA Diet (Heart Healthy), Diabetes Type 2 Diet Discharge Diet Recommended Diet: AHA Diet (Heart Healthy), Diabetes Type 2 Diet Pending Studies Studies pending at discharge: yes List of pending studies: Stress ECHO report Laboratory Results Hemoglobin A1c Test 04/22/17 06:53 Range/Units Estimated Average Glucose 189 mg/dl Hemoglobin A1c 8.2 H 4.5-5.6 % Medical Emergencies . Who to Call and When: Medical Emergencies: If at any time you feel your situation is an emergency, please call 911 immediately. . Non-Emergent Contact Non-Emergency issues call your: Primary Care Provider, Reimbursement Spec Call Non-Emergent contact if: you have a fever, your pain is not controlled, your pain is worsening, your pain is unusual for you, your pain is concerning you, you have any medication questions . . "Provider Documentation" section prepared by Erich Mcwilliams. . VTE Core Measure Inpt VTE Proph given/why not?: Enoxaparin (Lovenox)SQ <Electronically signed by Erich Mcwilliams MD> Signed: 04/22/17 [id number] Signed: The status of this report is Signed * If report status is Draft, the document has not been finalized by the responsible provider.
[2017-04-22 16:46] VITALS: BP 97/61; PULSE 80; TEMP 36.4; O2SAT 97
--- NOTE | 2017-04-22 17:06 | EXERCISE STRESS ECHO ---
*NOTICE TO RECEIVING REPUBLICAN AGENCY This information is strictly Confidential and protected under [place] law. [place] law prohibits you from making any further disclosure of this information unless further disclosure is expressly permitted by the written consent of the person to whom it pertains or is authorized by law. A general authorization for the release of medical or other information is not sufficient for this purpose. Hospital accepts no responsibility if the information is made available to any other person, INCLUDING THE PATIENT. Interpretation Summary * Name: KENA HEAHT Study Date: 04/22/2017 10:50 AM BP: 113/71 mmHg * Patient Location: C.2T\S\S238\S\1 HR: 72 * : 1955 (M/d/yyyy) Gender: Female Height: 61 in * Age: 62 yrs Ethnicity: [place] Weight: 190 lb * Ordering Physician: Simba Pierre * Referring Physician: CORKY * Performed By: iVcky Singh RDCS * * Reason For Study: CHEST PAIN * BSA: 1.8 m2 * Technically limited stress images with poor apical acoustic windows. * The exercise stress echo is equivocal for inducible ischemia. * No anginal symptoms during exercise or at peak heart rate. * Below average exercise tolerance. * Recommend alternative imaging modality, ie Lexiscan nuclear stress test. * Exercise capacity is below average. * -- Conclusions -- * Stress Images: LV function appears to increase normally in the parasternal views. * Apical acoustic windows are technically limited. Possible abnormal septal and apical wall motion related to conduction abnormality, however, ischemia cannot be excluded. Procedure Details * ECHOEX, CPT #64554 * A contrast injection of Definity was performed to improve assessment of LV function. * Contrast was injected into an intravenous site in the left arm. * One vial of Definity ultrasound contrast was diluted in normal saline to a total volume of 10 ml. A total of '4' ml of solution was administered during imaging. * Lot # [id number] of Definity utilized for procedure. * Expiration date MAY 11. * The attending nurse who injected the contrast agent was KHANH BURKS RN. Left Ventricle * Stress Images: LV function appears to increase normally in the parasternal views. Apical acoustic windows are technically limited. Possible abnormal septal and apical wall motion related to conduction abnormality, however, ischemia cannot be excluded. Stress Parameters * The baseline ECG displays normal sinus rhythm. * Baseline ECG: RBBB, LAFB * Stress ECG: No ST changes. No arrhythmias. * The stress portion of this study was personally supervised by the undersigned interpreting physician. * Rest heart rate was '72' BPM. * Rest blood pressure was '113/71' * Maximum heart rate achieved was 173 bpm. * Maximum heart rate was 110 % of maximum age-predicted heart rate. * Maximum blood pressure was '169/65' * Total exercise time was '3:00' * Maximum exercise MET level achieved was '4.60' METS * Maximum treadmill speed was '1.70' miles per hour. * Maximum treadmill elevation was '10.00'% grade. * Accelerated heart rate response to exercise.
[2017-04-23] MEDS ORDERED: METHIMAZOLE 5 MG TAB PO SCH (09:00)
== END 2017-04-22 17:11 | disposition home or self-care (01) ==
LOC: C.EDB 06:40 → C.2T 08:34 → ENRESERV 08:48
PROVIDERS: ADMIT Internal Medicine; ATTEND Internal Medicine
DX: R07.9 Chest pain, unspecified (principal); I45.2 Bifascicular block; I10 Essential (primary) hypertension; E78.00 Pure hypercholesterolemia, unspecified; E11.9 Type 2 diabetes mellitus without complications; E05.90 Thyrotoxicosis, unspecified without thyrotoxic crisis or storm; F17.200 Nicotine dependence, unspecified, uncomplicated; Z79.82 Long term (current) use of aspirin; Z79.84 Long term (current) use of oral hypoglycemic drugs; Z79.899 Other long term (current) drug therapy

== ENCOUNTER → 2017-05-11 | Outpatient (CLI) | payer OTHER ==
[~2017-05-11] MED LIST changes: -ARTHRITIS PILL PO; +ASPI81TA28 PO; +ATOR-54 PO; -ATOR10TA88 PO; +DICL-201 PO; +GLC500 PO; -LISI-729 PO; +LSN25 PO; +METH10TA6 PO; -OXYC1TAB3 PO; +REPA1TAB10 PO; -REPA1TAB42 PO; -THYROID PILL PO
--- NOTE | 2017-05-12 07:48 | MAMMOGRAPHY REPORT ---
BILATERAL DIGITAL SCREENING MAMMOGRAM TOMOSYNTHESIS WITH CAD: 05/11/2017 CLINICAL HISTORY: Routine screening. Patient has no complaints. TECHNIQUE: Breast tomosynthesis in addition to standard 2D mammography was performed. Current study was also evaluated with a Computer Aided Detection (CAD) system. COMPARISON: Comparison is made to exams dated: 05/05/2016 mammogram, 05/02/2015 mammogram, 04/26/2014 mammogram, 04/25/2013 mammogram, 04/24/2012 mammogram, and 04/22/2011 mammogram - [facility]. BREAST COMPOSITION: There are scattered areas of fibroglandular density in both breasts. FINDINGS: There is stable asymmetry in the lateral right breast. Stable faint grouping of punctate microcalcifications also in the lateral right breast. No new suspicious mass, architectural distortio n or cluster of microcalcifications is seen. IMPRESSION: ACR BI-RADS CATEGORY 2: BENIGN There is no mammographic evidence of malignancy. A 1 year screening mammogram is recommended. The pa tient will receive written notification of the results. Approximately 10% of breast cancers are not detected with mammography. A negative mammographic report should not delay biopsy if a clinically suggestive mass is present. Malorie Hendrix M.D. ay/:05/11/2017 15:41:25 Board Operator: Taylor Guerra, [facility] letter sent: Normal 1/2 BI-RADS Code: ACR BI-RADS Category 2: Benign
== END | disposition home or self-care (01) ==
LOC: C.MAMM 10:55
PROVIDERS: ATTEND Physician Assistant
DX: Z12.31 Encounter for screening mammogram for malignant neoplasm of breast (principal)